=== PATIENT | female | born 1930 | race Caucasian/White ===

== ENCOUNTER 2017-04-04 09:33 | Emergency (ER) | payer MEDICARE ==
[~2017-04-04] VITALS: Ht 157.5 cm; Wt 50.0 kg
[~2017-04-04 09:33] MED LIST: AMLO5TAB96 PO; ASPI81TA11 OR; ATEN50; BENA20; CLIN1CAP5 PO; ISOS30TA3 PO; LORT5TAB PO; ROSU5 OR; [UNRECOGNIZED DRUG - OTHER] PO; [UNRECOGNIZED DRUG - OTHER] PO
[2017-04-04 09:34] VITALS: BP 192/88; PULSE 88; RESP 16; TEMP 99.5; O2SAT 98
[2017-04-04 09:56] VITALS: RESP 16; O2SAT 98
[2017-04-04] MEDS ORDERED: AMLO5 PO (10:07)
[2017-04-04] MEDS ORDERED: ATEN50TA PO (10:07)
[2017-04-04] MEDS ORDERED: ATOR20TA15 PO (10:07)
[2017-04-04] MEDS ORDERED: ASPI-516 PO (10:07)
--- NOTE | 2017-04-04 10:10 | RADRPT ---
EXAM DATE/TIME: 04/04/2017 09:59 [place] COMPARISON: No previous studies available for comparison. INDICATIONS : Patient complains of cough. MEDICAL HISTORY : None. SURGICAL HISTORY : CABG. ENCOUNTER: Initial ACUITY: 2 days PAIN SCORE: 10 LOCATION: chest FINDINGS: PA and lateral views of the chest demonstrate the lungs to be symmetrically aerated without evidence of mass, infiltrate or effusion. There is hyperaeration of both lung stewart. The cardiomediastinal c ontours are unremarkable. There is evidence of previous cardiothoracic surgery. Osseous structures a re intact. CONCLUSION: No acute disease. Gio Hsu MD on April 04, 2017 at 10:08 Board Certified Radiologist. This report was verified electronically.
--- NOTE | 2017-04-04 10:18 | PD ---
HPI Chief Complaint: Cold / Flu Symptoms Time Seen by Provider: 10:13 Travel History International Travel<30 days: No Contact w/Intl Traveler<30days: No Traveled to known affect area: No History of Present Illness HPI 86-year-old female complains of cough for the past 3 nights. Chest pain is associated with the coughing which she believes is musculoskeletal. No shortness of breath. Rhinorrhea reported. Similar symptoms are much less severe have been present for about 1-1/2 months PFSH Past Medical History Arthritis: No Asthma: No Autoimmune Disease: No Blood Disorders: No Anxiety: Yes Depression: No Heart Rhythm Problems: No Cancer: No Cardiovascular Problems: Yes High Cholesterol: Yes Chemotherapy: No Chest Pain: Yes Congestive Heart Failure: No COPD: No Cerebrovascular Accident: No Diabetes: No Diminished Hearing: No Endocrine: No GERD: Yes Glaucoma: No Genitourinary: Yes Headaches: No Hepatitis: No Hiatal Hernia: No Hypertension: Yes Immune Disorder: No Kidney Stones: No Musculoskeletal: No Neurologic: No Psychiatric: No Reproductive: No Respiratory: No Migraines: No Myocardial Infarction: Yes Radiation Therapy: No Renal Failure: No Seizures: No Sickle Cell Disease: No Sleep Apnea: No Thyroid Disease: No Ulcer: No Tetanus Vaccination: > 5 Years Influenza Vaccination: Yes ?: Not Menopausal: Yes : 5 Para: 5 Past Surgical History Abdominal Surgery: No AICD: No Appendectomy: No Arteriovenous Shunt: Yes Cardiac Surgery: Yes (BYPASS,STENTS) Cholecystectomy: No Coronary Artery Bypass Graft: Yes Ear Surgery: No Endocrine Surgery: No Eye Surgery: Yes (CATARACT REMOVAL) Genitourinary Surgery: No Gynecologic Surgery: Yes (HYSTERECTOMY) Hysterectomy: Yes Insulin Pump: No Joint Replacement: No Oral Surgery: Yes (TONSILECTOMY) Pacemaker: No Other Surgery: No Social History Alcohol Use: No Tobacco Use: No Substance Use: No Allergies-Medications (Allergen,Severity, Reaction): Coded Allergies: gadodiamide (Verified Allergy, Intermediate, rash, 04/04/17) penicillin G (Verified Allergy, Intermediate, rash, 04/04/17) diatrizoate meglumine (Verified Allergy, Mild, rash, 04/04/17) gadobenic acid (Verified Allergy, Mild, rash, 04/04/17) gadoteridol (Verified Allergy, Mild, rash, 04/04/17) iodixanol (Verified Allergy, Mild, rash, 04/04/17) iohexol (Verified Allergy, Mild, rash, 04/04/17) Sulfa (Sulfonamide Antibiotics) (Unverified Adverse Reaction, Severe, Diarrhea, 04/04/17) cramping, fever Reported Meds & Prescriptions Reported Meds & Active Scripts Active Guaifenesin-Codeine Liq 100-10 Mg/5 Ml Soln 10 Ml PO Q6H PRN 7 Days Tamiflu (Oseltamivir Phosphate) 75 Mg Cap 75 Mg PO BID 5 Days Proair Hfa 8.5 GM Inh (Albuterol Sulfate) 90 Mcg/Act Aer 2 Puff INH Q4-6H PRN 108 mcg/actuation Tessalon Perles (Benzonatate) 100 Mg Cap 100 Mg PO TID PRN Azithromycin 250 Mg Tab 250 Mg PO DIRECTED Take 2 tabs (500 mg) on day 1 then 1 tab daily x 4 days. Reported Atenolol 50 Mg Tab 50 Mg PO DAILY Atorvastatin (Atorvastatin Calcium) 20 Mg Tab 20 Mg PO HS Norvasc (Amlodipine Besylate) 5 Mg Tab 5 Mg PO DAILY Aspirin 81 Mg Chew 81 Mg PO DAILY Review of Systems Except as stated in HPI: all other systems reviewed are Neg General / Constitutional: No: Fever Physical Exam Narrative GENERAL: This 86-year-old female pleasant well-nourished well-developed mild distress Vital Signs Date Time Temp Pulse Resp B/P (MAP) Pulse Ox O2 Delivery O2 Flow Rate FiO2 04/04/17 09:56 98 Room Air 04/04/17 09:56 16 98 Room Air 04/04/17 09:34 99.5 88 16 192/88 (122) 98 SKIN: Warm and dry. HEAD: Atraumatic. Normocephalic. EYES: Pupils equal and round. No scleral icterus. No injection or drainage. ENT: No nasal bleeding or discharge. Mucous membranes pink and moist. NECK: Trachea midline. No JVD. CARDIOVASCULAR: Regular rate and rhythm. RESPIRATORY: Occasional cough. GASTROINTESTINAL: Abdomen soft, non-tender, nondistended. Hepatic and splenic margins not palpable. MUSCULOSKELETAL: Extremities without clubbing, cyanosis, or edema. No obvious deformities. NEUROLOGICAL: Awake and alert. No obvious cranial nerve deficits. Motor grossly within normal limits. Five out of 5 muscle strength in the arms and legs. Normal speech. PSYCHIATRIC: Appropriate mood and affect; insight and judgment normal. Data Data Last Documented VS Vital Signs Date Time Temp Pulse Resp B/P (MAP) Pulse Ox O2 Delivery O2 Flow Rate FiO2 04/04/17 12:20 98.1 68 16 152/83 (106) 98 04/04/17 11:00 Room Air Orders Orders Electrocardiogram (04/04/17 09:45) Basic Metabolic Panel (Bmp) (04/04/17 09:45) Complete Blood Count With Diff (04/04/17 09:45) Comprehensive Metabolic Panel (04/04/17 09:45) Lactic Acid Sepsis Protocol (04/04/17 09:45) Chest, Pa & Lat (04/04/17 09:45) Ecg Monitoring (04/04/17 09:45) Iv Access Insert/Monitor (04/04/17 09:45) Oximetry (04/04/17 09:45) Oxygen Administration (04/04/17 09:45) Influenzae A/B Antigen (04/04/17 10:18) Sodium Chloride 0.9% Flush (Ns Flush) (04/04/17 10:30) Albuterol-Ipratropium Neb (Duoneb Neb) (04/04/17 10:30) Sodium Chlor 0.9% 1000 Ml Inj (Ns 1000 M (04/04/17 10:30) Oseltamivir (Tamiflu) (04/04/17 12:15) Ed Discharge Order (04/04/17 12:09) Labs Laboratory Tests Test 04/04/17 10:05 White Blood Count 9.8 TH/MM3 Red Blood Count 4.36 MIL/MM3 Hemoglobin 13.9 GM/DL Hematocrit 41.0 % Mean Corpuscular Volume 94.0 FL Mean Corpuscular Hemoglobin 31.8 PG Mean Corpuscular Hemoglobin Concent 33.8 % Red Cell Distribution Width 14.1 % Platelet Count 142 TH/MM3 Mean Platelet Volume 9.6 FL Neutrophils (%) (Auto) 81.0 % Lymphocytes (%) (Auto) 6.8 % Monocytes (%) (Auto) 11.8 % Eosinophils (%) (Auto) 0.2 % Basophils (%) (Auto) 0.2 % Neutrophils # (Auto) 7.9 TH/MM3 Lymphocytes # (Auto) 0.7 TH/MM3 Monocytes # (Auto) 1.2 TH/MM3 Eosinophils # (Auto) 0.0 TH/MM3 Basophils # (Auto) 0.0 TH/MM3 CBC Comment DIFF FINAL Differential Comment Blood Urea Nitrogen 17 MG/DL Creatinine 1.14 MG/DL Random Glucose 103 MG/DL Total Protein 8.0 GM/DL Albumin 3.7 GM/DL Calcium Level 9.2 MG/DL Alkaline Phosphatase 86 U/L Aspartate Amino Transf (AST/SGOT) 39 U/L Alanine Aminotransferase (ALT/SGPT) 21 U/L Total Bilirubin 1.1 MG/DL Sodium Level 136 MEQ/L Potassium Level 4.6 MEQ/L Chloride Level 104 MEQ/L Carbon Dioxide Level 26.0 MEQ/L Anion Gap 6 MEQ/L Estimat Glomerular Filtration Rate 45 ML/MIN Lactic Acid Level 1.6 mmol/L [facility] Medical Decision Making Medical Screen Exam Complete: Yes Emergency Medical Condition: Yes Medical Record Reviewed: Yes Differential Diagnosis Pneumonia, influenza, electrolyte imbalance, postnasal drip, GERD Narrative Course CBC & BMP Diagram 04/04/17 10:05 Total Protein 8.0, Albumin 3.7, Calcium Level 9.2, Alkaline Phosphatase 86, Aspartate Amino Transf (AST/SGOT) 39 H, Alanine Aminotransferase (ALT/SGPT) 21, Total Bilirubin 1.1 H Last Impressions Chest X-Ray 04/04/17 0945 Signed Impressions: Service Date/Time: Tuesday, April 04, 2017 09:59 - CONCLUSION: No acute disease. Gio Hsu MD Prescriptions as below. Presentation concerning for potential influenza, atypical pneumonia, or nonspecific viral bronchitis. Patient is lucid and competent. Return precautions discussed. Diagnosis Primary Impression: Cough Additional Impression: Viral syndrome Referrals: Primary Care Physician 2 days Med/Other Pt SpecificInfo: Prescription(s) given Scripts Guaifenesin-Codeine Liq (Guaifenesin-Codeine Liq) 100-10 Mg/5 Ml Soln 10 ML PO Q6H Y for COUGH for 7 Days, #1 BOTTLE 0 Refills Prov: Paul Ferreira MD 04/04/17 Oseltamivir (Tamiflu) 75 Mg Cap 75 MG PO BID for Mgmt Viral Infection for 5 Days, #10 CAP 0 Refills Prov: Paul Ferreira MD 04/04/17 Albuterol 8.5 GM Inh (Proair Hfa 8.5 GM Inh) 90 Mcg/Act Aer 2 PUFF INH Q4-6H Y for SHORTNESS OF BREATH, #1 INHALER 0 Refills 108 mcg/actuation Prov: Paul Ferreira MD 04/04/17 Benzonatate (Tessalon Perles) 100 Mg Cap 100 MG PO TID Y for COUGH, #14 CAP 0 Refills Prov: Paul Ferreira MD 04/04/17 Azithromycin (Azithromycin) 250 Mg Tab 250 MG PO DIRECTED for Infection, #6 TAB 0 Refills Take 2 tabs (500 mg) on day 1 then 1 tab daily x 4 days. Prov: Paul Ferreira MD 04/04/17 Disposition: 01 DISCHARGE HOME Condition: Stable Paul Ferreira MD Apr 04, 2017 10:18
[2017-04-04] MEDS ORDERED: SODIUM CHLORIDE 0.9% FLUSH 10 ML FLUSH IVF PRN (10:30)
[2017-04-04] MEDS ORDERED: RESP: ALBUTEROL 2.5 MG/IPRATROPIUM 0.5 MG NEB (SCH) INH ONE (10:30)
[2017-04-04] MEDS ORDERED: SODIUM CHLOR 0.9% 1000 ML INJ 1,000 ML IV ONE (10:30)
[2017-04-04 10:49] LABS: AUTOMATED NEUTROPHIL # 7.9 TH/MM3 (1.8-7.7); BASOPHIL % 0.2 % (0.0-2.0); EOSINOPHIL % 0.2 % (0.0-4.0); HEMOGLOBIN 13.9 GM/DL (11.6-15.3); LYMPH % 6.8 % (9.0-44.0); LYMPHOCYTE # 0.7 TH/MM3 (1.0-4.8); MEAN CORPUSCULAR HEMOGLOBIN 31.8 PG (27.0-34.0); MEAN CORPUSCULAR HGB CONC 33.8 % (32.0-36.0); MEAN PLATELET VOLUME 9.6 FL (7.0-11.0); MONO % 11.8 % (0.0-8.0); MONOCYTE # 1.2 TH/MM3 (0-0.9); PLATELET COUNT 142 TH/MM3 (150-450); RED BLOOD COUNT 4.36 MIL/MM3 (4.00-5.30); RED CELL DISTRIBUTION WIDTH 14.1 % (11.6-17.2); WHITE BLOOD COUNT 9.8 TH/MM3 (4.0-11.0)
[2017-04-04 11:00] VITALS: BP 178/88; PULSE 76; RESP 17; TEMP 98.6; O2SAT 98
[2017-04-04 11:41] LABS: ALKALINE PHOSPHATASE 86 U/L (45-117); TOTAL BILIRUBIN ADULT 1.1 MG/DL (0.2-1.0)
[2017-04-04 11:55] LABS: ALBUMIN 3.7 GM/DL (3.4-5.0); ALT (GPT) 21 U/L (10-53); AST (GOT) 39 U/L (15-37); BLOOD UREA NITROGEN 17 MG/DL (7-18); CALCIUM 9.2 MG/DL (8.5-10.1); CHLORIDE 104 MEQ/L (98-107); CREATININE 1.14 MG/DL (0.50-1.00); GLOMERULAR FILTRATION RATE 45 ML/MIN (>89); GLUCOSE,RANDOM 103 MG/DL (74-106); SODIUM (NA) 136 MEQ/L (136-145)
[2017-04-04] MEDS ORDERED: GUAI100S5 PO (12:08)
[2017-04-04] MEDS ORDERED: ALBUAER3 INH (12:08)
[2017-04-04] MEDS ORDERED: AZIT250T3 PO (12:08)
[2017-04-04] MEDS ORDERED: OSEL75 PO (12:08)
[2017-04-04] MEDS ORDERED: BENZ100 PO (12:08)
[2017-04-04] MEDS ORDERED: OSELTAMIVIR PHOSPHATE 75 MG CAP PO ONE (12:15)
[2017-04-04 12:20] VITALS: BP 152/83; TEMP 98.1
--- NOTE | 2017-04-04 14:47 | EKG ---
Date Performed: 04/04/2017 Time Performed: 10:10:33 PTAGE: 86 years EKG: Sinus rhythm LEFT ATRIAL ENLARGEMENT INCOMPLETE RIGHT BUNDLE BRANCH BLOCK LEFT ANTERIOR FASCICULAR BLOCK ST DEVIA TION AND MARKED T-WAVE ABNORMALITY, CONSIDER ANTERIOR ISCHEMIA ABNORMAL ECG Since PREVIOUS TRACING , no significant change noted PREVIOUS TRACIN08/29/2008 19.41 DOCTOR: Puma Bradford Interpretating Date/Time 04/04/2017 14:45:53
== END 2017-04-04 12:20 | disposition home or self-care (01) ==
LOC: NEPC 09:33
DX: B34.9 Viral infection, unspecified (principal); I45.10 Unspecified right bundle-branch block; I44.4 Left anterior fascicular block; I51.7 Cardiomegaly; R94.31 Abnormal electrocardiogram [ECG] [EKG]; F41.9 Anxiety disorder, unspecified; K21.9 Gastro-esophageal reflux disease without esophagitis; I10 Essential (primary) hypertension; I25.2 Old myocardial infarction
CPT/HCPCS: 71046; 80053; 83605; 85025; 87804; 93005; 94664; 96360; 99285; J7030